=== PATIENT | male | born 1975 | race Caucasian/White ===

== ENCOUNTER 2016-02-28 10:12 | Emergency (ER) | payer OTHER ==
[~2016-02-28] VITALS: Ht 188 cm; Wt 82.0 kg
[~2016-02-28 10:12] MED LIST: ALBUTEROL INHALER; ALBUTEROL SULF8.5 GM IH; AUGMENTIN875 MG PO; CLINDAMYCIN HC300 MG PO; HYDROCODON-ACE1 EAC7 PO; MOTRIN800 MG PO; NAPROSYN500 MG PO; NOHOMEMEDS; PERCOCET 5/31 TABLET PO; PHENERGAN-CODE120 ML PO; PREDNISONE20 MG PO; TESSALON PERLE100 MG PO; TRAMADOL HCL50 MG PO; VENTOLIN HFA18 GM IH; ZITHROMAX Z-PA250 MG PO; ZITHROMAX250 MG PO
[2016-02-28] MEDS ORDERED: VALIUM5 MG PO (12:49)
[2016-02-28] MEDS ORDERED: MOTRIN800 MG PO (12:49)
[2016-02-28] MEDS ORDERED: NORCO 7.5/321 TABLET PO (12:49)
[2016-02-28 13:16] VITALS: BP 134/81
== END 2016-02-28 13:18 | disposition home or self-care (01) ==
LOC: RME 10:12 → EME 10:12 → RME 13:18
DX: S16.1XXA Strain of muscle, fascia and tendon at neck level, initial encounter (principal); S39.012A Strain of muscle, fascia and tendon of lower back, initial encounter; V43.52XA Car driver injured in collision with other type car in traffic accident, initial encounter; F17.200 Nicotine dependence, unspecified, uncomplicated
CPT/HCPCS: 99281; 99283

== ENCOUNTER 2016-06-10 14:14 | Emergency (ER) | payer SELFPAY ==
[~2016-06-10] VITALS: Ht 188 cm; Wt 81.5 kg
[~2016-06-10 14:14] MED LIST changes: +NORCO 7.5/321 TABLET PO; +VALIUM5 MG PO
[2016-06-10] MEDS ORDERED: MOTRIN800 MG PO (16:45)
[2016-06-10] MEDS ORDERED: NORCO 7.5/321 TABLET PO (16:45)
[2016-06-10] MEDS ORDERED: ZITHROMAX250 MG PO (16:45)
[2016-06-10 17:04] VITALS: BP 134/84
== END 2016-06-10 17:09 | disposition home or self-care (01) ==
LOC: EME 14:14
DX: S22.31XA Fracture of one rib, right side, initial encounter for closed fracture (principal); J18.0 Bronchopneumonia, unspecified organism; X50.0XXA Overexertion from strenuous movement or load, initial encounter; Z72.0 Tobacco use
CPT/HCPCS: 71020; 99281; 99284

== ENCOUNTER 2016-06-19 07:43 | Emergency (ER) | payer SELFPAY ==
[~2016-06-19] VITALS: Ht 188 cm; Wt 79.9 kg
[2016-06-19] MEDS ORDERED: TESSALON PERLE100 MG PO (09:52)
[2016-06-19] MEDS ORDERED: FLEXERIL10 MG PO (09:52)
[2016-06-19 10:05] VITALS: BP 134/74
== END 2016-06-19 10:05 | disposition home or self-care (01) ==
LOC: EME 07:43
DX: S22.31XD Fracture of one rib, right side, subsequent encounter for fracture with routine healing (principal); J06.9 Acute upper respiratory infection, unspecified; F17.210 Nicotine dependence, cigarettes, uncomplicated
CPT/HCPCS: 71020; 99281; 99283; J1885

== ENCOUNTER 2017-05-12 03:02 | Emergency (ER) | payer SELFPAY ==
[~2017-05-12] VITALS: Ht 188 cm; Wt 82.1 kg
[~2017-05-12 03:02] MED LIST changes: +FLEXERIL10 MG PO
[2017-05-12] MEDS ORDERED: CLEOCIN300 MG PO (05:13)
[2017-05-12] MEDS ORDERED: ULTRAM50 MG PO (05:13)
[2017-05-12 05:31] VITALS: BP 133/78
== END 2017-05-12 05:32 | disposition home or self-care (01) ==
LOC: EME 03:02
PROC: 0H91XZZ Drainage of Face Skin, External Approach (ICD-10-PCS; principal; 2017-05-12)
DX: L02.01 Cutaneous abscess of face (principal); F17.200 Nicotine dependence, unspecified, uncomplicated
CPT/HCPCS: 87205; 99281; 99284